=== PATIENT | female | born 1950 | race Caucasian/White ===

== ENCOUNTER 2019-06-02 18:08 | Emergency (ER) | payer OTHER ==
[~2019-06-02] VITALS: Ht 160 cm; Wt 96.2 kg
[2019-06-02] MEDS ORDERED: HYDROCODONE/APAP 10/325MG 1 EA TABLET PO ONE (18:30)
[2019-06-02] MEDS ORDERED: ONDANSETRON 4 MG TAB.RAPDIS SL ONE (18:30)
[2019-06-02] MEDS ORDERED: HYDROCODONE/APAP 10/325MG 1 EA TABLET ONE (18:30)
[2019-06-02] MEDS ORDERED: ONDANSETRON 4 MG TAB.RAPDIS ONE (18:30)
--- NOTE | 2019-06-02 18:30 | NUR ---
RLE PAIN S/P GLF LAST 05/20/19. PATIENT A/OX4, BREATHING EVEN AND UNLABORED, NO DISTRESS NOTED. NEEDS ATTENDED.
[2019-06-02 19:55] VITALS: BP 132/60
== END 2019-06-02 20:14 | disposition home or self-care (01) ==
LOC: ER 18:10
DX: S76.011A Strain of muscle, fascia and tendon of right hip, initial encounter (principal); E11.9 Type 2 diabetes mellitus without complications; I10 Essential (primary) hypertension; W01.0XXA Fall on same level from slipping, tripping and stumbling without subsequent striking against object, initial encounter; Y93.89 Activity, other specified; Y92.89 Other specified places as the place of occurrence of the external cause; Y99.8 Other external cause status
CPT/HCPCS: 73502; 99283; Q0162